=== PATIENT | female | born 1980 | race Caucasian/White ===

== ENCOUNTER 2016-07-24 20:36 | Emergency (ER) | payer OTHER ==
[2016-07-24 20:52] VITALS: RESP 16; TEMP 98.8
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
[2016-07-24] MEDS ORDERED: CYCLOBENZAPRINE 10MG PREPACK#3 BTL TAKEHOME ONE (22:17)
[2016-07-24] MEDS ORDERED: IBUPROFEN 600 MG TAB PO ONE (22:17)
[2016-07-24 23:04] VITALS: BP 129/82; PULSE 72; O2SAT 97
== END 2016-07-24 23:02 | disposition home or self-care (01) ==
DX: S16.1XXA Strain of muscle, fascia and tendon at neck level, initial encounter (principal); Z87.891 Personal history of nicotine dependence; V43.52XA Car driver injured in collision with other type car in traffic accident, initial encounter; Y92.410 Unspecified street and highway as the place of occurrence of the external cause
CPT/HCPCS: L0172